=== PATIENT | male | born 1975 | race Caucasian/White ===

== ENCOUNTER 2020-09-14 12:30 | Emergency (ER) | payer OTHER ==
[~2020-09-14] VITALS: Ht 185.4 cm; Wt 68.0 kg
== END 2020-09-14 14:24 | disposition home or self-care (01) ==
LOC: ED 12:30
DX: S61.211A Laceration without foreign body of left index finger without damage to nail, initial encounter (principal); S61.022A Laceration with foreign body of left thumb without damage to nail, initial encounter; Z23 Encounter for immunization; Z88.8 Allergy status to other drugs, medicaments and biological substances; W26.0XXA Contact with knife, initial encounter; Y93.89 Activity, other specified; Y92.89 Other specified places as the place of occurrence of the external cause; Y99.8 Other external cause status